=== PATIENT | male | born 1980 | race Two or more races ===

== ENCOUNTER 2023-03-21 12:20 | Emergency (ER) | payer OTHER ==
[2023-03-21 12:27] VITALS: BP 127/82; PULSE 63; RESP 17; TEMP 97.6; BMI 26.6
[2023-03-21] MEDS ORDERED: IBUPROFEN 600 MG TABLET (FP) PO ONE ×2 (14:05→14:07)
[2023-03-21] MEDS ORDERED: ACETAMINOPHEN 500 MG TABLET (FP) PO ONE (14:05)
[2023-03-21] MEDS ORDERED: LIDOCAINE 5% TOPICAL PATCH TP ONE (14:05)
[2023-03-21] MEDS ORDERED: CYCLOBENZAPRINE HCL 10 MG TABLET (FP) PO ONE (14:05)
[2023-03-21] MEDS ORDERED: ACETAMINOPHEN 500 MG TABLET (FP) ONE (14:07)
[2023-03-21] MEDS ORDERED: LIDOCAINE 5% TOPICAL PATCH ONE (14:07)
[2023-03-21] MEDS ORDERED: CYCLOBENZAPRINE HCL 10 MG TABLET (FP) ONE (14:07)
[2023-03-21] MEDS ORDERED: LIDOCAINE PATCH REMOVAL MC ONE (22:00)
== END 2023-03-21 14:55 | disposition home or self-care (01) ==
LOC: JERFT 12:20
DX: M54.2 Cervicalgia (principal); V47.5XXA Car driver injured in collision with fixed or stationary object in traffic accident, initial encounter; Y93.I9 Activity, other involving external motion
CPT/HCPCS: 99283-25